=== PATIENT | female | born 1970 | race Caucasian/White ===

== ENCOUNTER 2017-03-06 14:49 | Emergency (ER) | payer OTHER ==
[~2017-03-06] VITALS: Ht 162.6 cm; Wt 54.4 kg
[2017-03-06 14:50] VITALS: BP 159/98
[2017-03-06] MEDS ORDERED: BIOIDENTICAL HORMONE (14:54)
[2017-03-06] MEDS ORDERED: NORCO 5-325 TA1 EACH PO (15:20)
[2017-03-06] MEDS ORDERED: SENNA-DOCUSATE1 EACH PO (15:20)
== END 2017-03-06 15:45 | disposition home or self-care (01) ==
LOC: ER 14:49
DX: S93.422A Sprain of deltoid ligament of left ankle, initial encounter (principal); X50.1XXA Overexertion from prolonged static or awkward postures, initial encounter; Y93.89 Activity, other specified; Y92.89 Other specified places as the place of occurrence of the external cause; Y99.8 Other external cause status